=== PATIENT | female | born 1955 | race Caucasian/White ===

== ENCOUNTER 2018-09-06 17:02 | Inpatient (IN) | payer MEDICARE, MEDICAID ==
[2018-09-06] MEDS ORDERED: Piperacillin/Tazobactam 4.5 GM VIAL ONE (17:09)
[2018-09-06 17:31] LABS: Actual Bicarbonate (HCO3a) 29.1 mEq/L (22-28); Analyzer IN Cardio ER; Base Excess (BEa) 2.2 mEq/L (-2.0 to +3.0); CO2 Tension 56.1 mmHg (35.0-45.0); Calcium, Ionized 1.03 mmol/L (1.12-1.30); Hemoglobin (Hb) 11.8 g/dL (12.0-16.0); O2 Tension (PaO2) 163.7 mmHg (80.0-100.0); Potassium - ABG Lab 3.85 mmol/L (3.70-5.30); pH, Arterial 7.33 (7.35-7.45)
--- NOTE | 2018-09-06 17:32 | RAD ---
PORTABLE SUPINE CHEST: 09/06/18 HISTORY: Intubation. COMPARISON: None. Heart size is within normal limits for supine technique. Chronic lung changes are seen. Parenchymal c hanges of the left mid lung field are favored to be on the basis of scar rather than an acute infiltr ative process. Technique for the mediastinum is limited. There is an endotracheal tube which appears to be in satisf actory position. There also is what appears to be an NG tube. I cannot see the position of what appea rs to be a second tube distally. IMPRESSION: Endotracheal tube which appears to be in satisfactory position. There appears to be a secondary tube and NG tube which I cannot see as it passes distally. Parenchymal changes of the left mid and lower lung cantu which are favored to be chronic in nature. POS: HOLLIS
[2018-09-06 17:33] LABS: ALV-art Gradient 122.675 (0-20); Puncture Site RR
[2018-09-06 17:40] LABS: Bilirubin Negative (Negative); Blood, Urine Large (Negative); Clarity CLEAR (Clear); Glucose, Urine (Dipstick) Negative (Negative); Leukocyte Trace (Negative); Nitrite Negative (Negative); Protein, Urine (Dipstick) 30 mg/dL (Neg-Trace); Specific Gravity, Urine 1.015 (1.002-1.036)
[2018-09-06 17:43] LABS: INR-International Normal Ratio 1.1; PTT 27.8 SEC (22.9-36.1); Prothrombin Time 14.4 SEC (12.0-14.7)
[2018-09-06 17:43] LABS: Bacteria/HPF None Seen HPF (None Seen); Hyaline Casts/LPF 7-10 HYALINE CAST LPF (0-3 Hyaline); Pathc Cast-AUWi Flag 0.87 (0-2.49); RBC/HPF GREATER THAN 50-TNTC HPF (0-3); Renal Epithelial None Seen HPF (0-3); Squamous Epithelial 0-3 HPF (0-3); Transitional Epithelial NONE SEEN HPF (0-3)
[2018-09-06 17:58] LABS: ALT (SGPT) 61 U/L (8-55); AST (SGOT) 61 U/L (5-34); Albumin 3.2 g/dL (3.5-5.0); Alkaline Phosphatase 53 U/L (40-150); Anion Gap 13 mmol/L (10-20); BUN (Urea Nitrogen) 17 mg/dL (9.8-20.1); Bilirubin, Total 0.5 mg/dL (0.2-1.2); CK (CPK) 49 U/L (29-168); Calc. Creatinine Clearance 0 mL/min (70-130); Calcium 8.1 mg/dL (7.8-10.44); Carbon Dioxide 31 mmol/L (22-29); Chloride 99 mmol/L (98-107); Estimated GFR-MDRD 73; Globulin 2.8 g/dL (2.4-3.5); Glucose 116 mg/dL (70-105); Potassium 4.7 mmol/L (3.5-5.1); Sodium 138 mmol/L (136-145)
--- NOTE | 2018-09-06 18:01 | CT ---
CT OF BRAIN PERFORMED WITHOUT CONTRAST ENHANCEMENT: 09/06/18 HISTORY: Patient fell at home. Head injury. The ventricular and cisternal system is within normal limits. There is no signs of intracerebral hemo rrhage or extra-axial fluid collection. Mastoid air cells are clear. There is ethmoid air cell and ma xillary sinus mucosal changes. There is some engorgement in the region of the nasal turbinates. IMPRESSION: No acute intracranial abnormalities. POS: H
[2018-09-06 18:10] LABS: #Lymphocytes 0.9 thou/uL (1.20-3.40); #Monocytes 0.6 thou/uL (0.11-0.59); #Neutrophils 5.2 thou/uL (1.40-6.50); %Basophils 0.1 % (0.0-1.0); %Eosinophils 0.3 % (0.0-10.0); %Lymphocytes 12.8 % (21.0-51.0); %Monocytes 8.9 % (0.0-10.0); %Neutrophils 77.9 % (42.0-75.0); Mean Corpuscular HGB CONC 32.2 g/dL (32.0-36.0); Mean Corpuscular Hemoglobin 30.7 pg (27.0-31.0); Mean Corpuscular Volume 95.2 fL (78.0-98.0); Mean Platelet Volume 6.9 fL (7.4-10.4); Platelet Count 235 thou/uL (130-400); RBC Distribution Width 11.9 % (11.5-14.5); Red Blood Cell (RBC) Count 3.93 mill/uL (4.20-5.40); White Blood Cell (WBC) Count 6.6 thou/uL (4.8-10.8)
--- NOTE | 2018-09-06 18:23 | CT ---
CT ABDOMEN AND PELVIS WITH IV CONTRAST: 09/06/18 HISTORY: Altered mental status, fever, vaginal bleeding. FINDINGS: There are mild dependent changes in the lung bases. The liver, spleen, pancreas, adrenal glands and r ight kidney are normal. There is a cyst in the left kidney. The patient is post cholecystectomy. No free air, free fluid, or lymphadenopathy is seen in the abdomen or pelvis. There are vascular calc ifications without evidence of aneurysmal dilatation of the abdominal aorta. There are degenerative c hanges in the spine. A uterus is present. A normal appearing appendix is noted. There is sigmoid diverticulosis without di verticulitis. No abnormally loculated fluid collection is seen to suggest abscess formation. Nasogast roderick tube is present. There is a Estrada catheter in the nondistended urinary bladder. IMPRESSION: 1. No acute process. 2. Sigmoid diverticulosis. 3. Left renal cyst. POS: MZA
--- NOTE | 2018-09-06 18:29 | CT ---
CT PULMONARY ANGIOGRAM WITH IV CONTRAST AND 3D POSTPROCESSIN09/06/18 HISTORY: Altered mental status. Respiratory failure. FINDINGS: No filling defects are seen in the pulmonary artery vasculature to suggest pulmonary embolism. The th oracic aorta is well opacified without aneurysmal dissection. Vascular calcifications are present. No pleural or pericardial effusions are seen. There are patchy infiltrates in the left mid and right lo wer lung zones. There are dependent changes in the lung bases. Endotracheal and nasogastric tubes are present. IMPRESSION: No CT evidence of pulmonary embolism. POS: PRABHAA
[2018-09-06 18:30] LABS: CKMB 1.5 ng/mL (0-6.6)
[2018-09-06] MEDS ORDERED: fentaNYL Citrate/PF 2,000 MCG in Sodium Chloride 0.9% 60 ML IV SCH (18:31)
[2018-09-06] MEDS ORDERED: Aspirin 300 MG Suppository ONE (19:00)
[2018-09-06] MEDS ORDERED: Lorazepam 2 MG/ML VIAL ONE (19:06)
[2018-09-06] MEDS ORDERED: Norepinephrine 8 MG/0.9% NS 250 ML ONE (20:06)
--- NOTE | 2018-09-06 20:16 | RAD ---
PORTABLE CHEST ONE VIEW: 09/06/18 at 7:55 p.m. HISTORY: Respiratory failure. FINDINGS/IMPRESSION: Comparison is made with earlier exam of 5:09 p.m. There has been interval placement of a right internal jugular central line with tip in the projection of the SVC. No pneumothoraces are seen. The remainder of the exam is otherwise stable. POS: MZA
[2018-09-06] MEDS ORDERED: Propofol BOLUS 1,000 MG/100 ML VIAL IV PRN (20:24)
[2018-09-06] MEDS ORDERED: Lorazepam 2 MG/ML VIAL SLOW IVP PRN (20:24)
[2018-09-06] MEDS ORDERED: Fentanyl BOLUS 250 ML IVPB PRN (20:24)
[2018-09-06] MEDS ORDERED: Morphine 2 MG/ML SYRINGE SLOW IVP PRN (20:24)
[2018-09-06] MEDS ORDERED: Propofol 1,000 MG/100 ML VIAL IV PRN (20:24)
[2018-09-06] MEDS ORDERED: Ondansetron PF 4 MG/2 ML Vial IVP PRN ×2 (20:26→20:52)
[2018-09-06] MEDS ORDERED: Ondansetron ODT 4 MG TAB SL PRN (20:26)
--- NOTE | 2018-09-06 20:44 | PDOC.FPRHP ---
- History of Present Illness Chief Complaint: Respiratory distress, found down History of Present Illness: This is a 63 yo female with a PMH of COPD, vaginal cancer who presented intubated to the ED via EMS. EMS was notified by her son who found her down at her house. He states that she was foaming at the mouth and appeared to be struggling to breath. EMS intubated her and brought her in. In the ER, she was placed on the ventilator and received fentanyl and ativan due to her moving about more. Pt was unable to provide any information and family states she is private with her medical details. They did report that she uses 3L of O2 24/ at home. ED Course: Levophed gtt Ativan 2mg Fentanyl gtt aspirin 600mg Vanc 1g zosyn 4.5g NS 1.5 bolus duoneb x1 - Allergies/Adverse Reactions Allergies Allergy/AdvReac Type Severity Reaction Status Date / Time No Known Drug Allergies Allergy Unverified 09/06/18 18:31 - History PMHx: COPD, vaginal cancer PSHx: unable to asses FHx:noncontributory Social: Current smoker, previous alcohol and marijuana use - Review of Systems ROS unobtainable: due to endotracheal tube - Vital signs BP: 92/64 HR: 102 RR: 20 Ventilated Tmax: 100.4 Pox: 95% on Vent (50% fio2) Wt : 84.7 kg - Physical Exam Constitutional: well developed, other (Intubated in no acute distress) HEENT: normocephalic and atraumatic, PERRLA, MMM Neck: trachea midline, no JVD Chest: no-tender to palpation Heart: RRR, normal S1/S2, no murmurs/rubs/gallops, pulses present (distal pulses present) Lungs: other (crackles throughout lung cantu) Abdomen: soft, bowel sounds present Neurological: other (GSC:10 Eyes to verbal command, Verbal 1t, motor: obeys commands) -Neurological: Unable to fully exam neuro due to intubation and sedation. pupils are small but reactive, pt follows commands and there appears no deficit in her motor strength. Will reassess when possible. FMR H&P: Results - Labs Result Diagrams: 09/06/18 17:28 09/06/18 17:27 Lab results: WBC 6.6 thou/uL (4.8-10.8) 09/06/18 17:28 Hgb 12.0 g/dL (12.0-16.0) 09/06/18 17:28 Hct 37.4 % (36.0-47.0) 09/06/18 17:28 MCV 95.2 fL (78.0-98.0) 09/06/18 17:28 Plt Count 235 thou/uL (130-400) 09/06/18 17:28 Neutrophils % 77.9 % (42.0-75.0) H 09/06/18 17:28 ABG pH 7.33 (7.35-7.45) L 09/06/18 17:27 ABG pCO2 56.1 mmHg (35.0-45.0) H 09/06/18 17:27 ABG pO2 163.7 mmHg (80.0-100.0) H 09/06/18 17:27 Sodium 138 mmol/L (136-145) 09/06/18 17:27 Potassium 4.7 mmol/L (3.5-5.1) 09/06/18 17:27 Chloride 99 mmol/L (98-107) 09/06/18 17:27 Carbon Dioxide 31 mmol/L (22-29) H 09/06/18 17:27 BUN 17 mg/dL (9.8-20.1) 09/06/18 17:27 Creatinine 0.81 mg/dL (0.6-1.1) 09/06/18 17:27 Glucose 116 mg/dL (70-105) H 09/06/18 17:27 Lactic Acid 1.5 mmol/L (0.5-2.2) 09/06/18 17:27 Calcium 8.1 mg/dL (7.8-10.44) 09/06/18 17:27 Total Bilirubin 0.5 mg/dL (0.2-1.2) 09/06/18 17:27 AST 61 U/L (5-34) H 09/06/18 17:27 ALT 61 U/L (8-55) H 09/06/18 17:27 Alkaline Phosphatase 53 U/L (40-150) 09/06/18 17:27 Creatine Kinase 49 U/L (29-168) 09/06/18 17:27 CK-MB (CK-2) 1.5 ng/mL (0-6.6) 09/06/18 17:27 B-Natriuretic Peptide 221.7 pg/mL (0-100) H 09/06/18 17:28 Serum Total Protein 6.0 g/dL (6.0-8.3) 09/06/18 17:27 Albumin 3.2 g/dL (3.5-5.0) L 09/06/18 17:27 Urine Ketones Negative mg/dL (Negative) 09/06/18 17:14 Urine Blood Large (Negative) H 09/06/18 17:14 Urine Nitrite Negative (Negative) 09/06/18 17:14 Ur Leukocyte Esterase Trace (Negative) H 09/06/18 17:14 Urine RBC GREATER THAN 50-TNTC HPF (0-3) H 09/06/18 17:14 Urine WBC 4-6 HPF (0-3) H 09/06/18 17:14 Ur Squamous Epith Cells 0-3 HPF (0-3) 09/06/18 17:14 Urine Bacteria None Seen HPF (None Seen) 09/06/18 17:14 - Radiology Interpretation Chest x-ray Status: report reviewed by me (Trachial tube and central line in place) CT scan - chest Status: report reviewed by me (CTA no evidence for PE, Patchy infiltrates in left mid and right lower lung zones) CT scan - abdomen Status: report reviewed by me (and pelvis: no acute findings, sigmoid diverticulosis) FMR H&P: A/P - Problem List (1) Acute respiratory failure with hypoxia Current Visit: Yes Status: Acute Code(s): J96.01 - ACUTE RESPIRATORY FAILURE WITH HYPOXIA (2) COPD (chronic obstructive pulmonary disease) Current Visit: Yes Status: Acute (3) UTI (urinary tract infection) Current Visit: Yes Status: Acute (4) Vaginal cancer Current Visit: Yes Status: Acute - Plan This is a 63 yo female with a pmh of COPD, vaginal cancer in remission Acute hypoxic respiratory failure likely 2/2 COPD exacerbation vs. PNA vs. substance use -Admit to ICU -On ventilator for respiratory support. Plan on weaning O2 overnight and plan to attempt extubation in the morning. Repeat ABG and CXR scheduled for the AM -Continue broad spectrum abx for possible PNA vs. COPD exacerbation. Vanc and zosyn 09/06, vanc trough 09/08 at 0500. -Starting IV steroids, convert to PO once pt can tolerate oral -Duonebs for respiratory support -Obtain more information from pt once she can communicate -Pending UDS -Pending FLU CHF -BNP is 221 HTN UA -broad spectum abx, likely not the source of her respiratory failure. Previous drug use, pending UDS Code: Full Prophylaxis: lovenox, Pepcid Family: son at bedside and assessment and plan discussed with him Disposition: DC in 3-4 days FMR H&P: Upper Level - Pertinent history 60F presents to ER after being found down by her son at approximately 1600, gasping for breath. She was last seen normal at approximately 1400 same day. She was intubated by EMS and brought to the ER where she is treated as possible sepsis with antibiotic. Prior to this, her son was ill with URI like symptom and she soon developed similar symptom for past several days. She has history of COPD and requires 3 L O2 at baseline. Per family, she has been taking medication appropriately, spiriva for COPD. They endorse not knowing her full medical history. - Pertinent findings Exam limited by patient being intubated and sedated. Gen: Intubated and sedated HEENT: Normocephalic, pupil reactive to light, intubated Resp: Currently on 40% O2, Tv 450, Peep 10, PS 5, 14 BPM. Clear auscultation CV: RRR with no obvious m/g/r/ GI: Normoactive, soft, no rebound or guarding Ext: Trace edema MSK: no obvious deformeties Neuro: On 14 of fentanyl. Can be aroused by voice. Follows command, open eyes to voice. No focal weakness noted. - Plan Date/Time: 09/06/182042 I, [Rufus Melton], have evaluated this patient and agree with findings/plan as outlined by inclusion intern resident. Pertinent changes/additions are listed here. 1. Acute Respiratory failure, hypoxic and hypercapnic - Consider multiple etiology including neuro, iatrogenic medication, cardiogenic , resp, infectious and urology. - UA positive. Will culture. Cover with broad abx at this time. - Family endorse patient has used marijuana in past. Will run UDS - Medication includes lasix. Consider CHF but BNP normal. Consider ACS as indeterminate trop. WIll repeat. - Possible medication. Patient and family can't provided complete history. Obtain UDS - History of recent illness. Obtain flu screen. - CT scan head normal, makes neuro less likely. - Resp, possible COPD exacerbation. Will cover broadly at this time and then narrow as patient improve. - Intubate, admit to ICU, consult pulm. - Currently hypotensive, is on pressor, may be result of sedation. Vitals and WBC does not support sepsis at this point, but will still treat with abx. Consider ceftriaxone. 2. CHF - Possible base on family history. Consider Echo when patient improves. - Continue lasix 3. HTN - Chronic issue - Continue valsartan when patient extubated. Cover with IV med as needed 4. COPD - Continue with duoneb - Supplement with O2 via vent 5. Chronic pain - Takes naproxen for chronic pain. At this time, hold med 6. Anxiety - Hold xanax
[2018-09-06] MEDS ORDERED: CCU Electrolyte Replacement 1 EACH FS ONE (20:52)
[2018-09-06] MEDS ORDERED: Acetaminophen 325 MG TAB PO PRN (20:52)
[2018-09-06] MEDS ORDERED: Ventilator Sedation Protocol 1 EACH FS ONE (20:52)
[2018-09-06] MEDS ORDERED: Ondansetron ODT 4 MG TAB PO PRN (20:52)
[2018-09-06] MEDS ORDERED: Acetaminophen 650 MG Suppository PR PRN (20:52)
[2018-09-06] MEDS ORDERED: Potassium Chloride 20 MEQ TAB PO PRN (20:59)
[2018-09-06] MEDS ORDERED: Potassium Phosphate 15 MMOL in Sodium Chloride 0.9% 250 ML 250 ML IV PRN (20:59)
[2018-09-06] MEDS ORDERED: Potassium Chloride 40 MEQ in Sodium Chloride 0.9% 250 ML 250 ML IVPB PRN (20:59)
[2018-09-06] MEDS ORDERED: Potassium Phosphate 12 MMOL in Sodium Chloride 0.9% 250 ML 250 ML IV PRN (20:59)
[2018-09-06] MEDS ORDERED: CCU ELECTROLYTE REPLACEMENT PROTOCOL FS PRN (20:59)
[2018-09-06] MEDS ORDERED: Potassium Chloride 40 MEQ in Premix Bag 1 BAG IVPB PRN (20:59)
[2018-09-06] MEDS ORDERED: Magnesium Oxide 400 MG TAB PO PRN ×2 (20:59)
[2018-09-06] MEDS ORDERED: Magnesium 2 GM/NS 0.9% 100 ML 2 GM in Premix Bag 1 BAG IVPB PRN (20:59)
[2018-09-06] MEDS ORDERED: Potassium Phosphate 9 MMOL in Sodium Chloride 0.9% 100 ML IVPB PRN (20:59)
[2018-09-06 21:14] LABS: Troponin I 0.078 ng/mL (< 0.028)
[2018-09-06] MEDS ORDERED: Norepinephrine 8 MG/250 ML BAG IVPB PRN ×2 (21:59→22:01)
--- NOTE | 2018-09-06 22:40 | PDOC.EVN ---
Event Note - Event Note Event Note: Date/Time: 09/06/182 I personally evaluated the patient and discussed the management with Dr. Berumen /Linh I agree with the History, Examination, Assessment and Plan documented above with any addition or exceptions noted below- 63 yo female with h/o COPD on chronic O2 at home, vaginal cancer presents via EMS after being found unresp[ onsive at home by son. Per ERMD, patient had been c/o SOB and malaise earlier in the day. Family went to run errands and when they returned they found her unresponsive and having foamy sputum at the mouth. EMS was called and patient was intubated uin the field. Currently patient is intubated but responding to verbal commands and able to answer yes/no questions. She does endorse feeling poorly with cough, fever for the last 3-4 days. PMH/PSH/All unable to be obtained at this time. P94 BP 105/77 RR20 98% on FiO2=40% Exam repeated by me and agree with resident's findings. Labs: WBC=6.6, H/H=12/37.9, Coa=763, Na= 138, K=4.7, Cl=99, CO2=31, BUN/Cr= 17/0.81, Iewn=089, AST/ALT=61/61, CYR=466, trop I=0.037 -> 0.078 CXR-ETT in position; infiltrate in LLL, CT chest- no PE A/ P: 1) Acute respiratory failure - Admit to ICU; continue vent support; ABG and CXR in AM. 2) Sepsis secondary to possible pneumonia- continue IVF. Monitor urine output. Continue abx. Blood, urine cultures pending. Will check flu swab. 3) H/o COPD- start duonebs, steroids. Wean vent as tolerated. Pulmonary consult in AM.
[2018-09-06] MEDS: Famotidine/PF 20 mg/2ml Vial SLOW IVP SCH (22:43)
[2018-09-06 22:46] LABS: Amphetamine Not Detected (NotDetected); Barbiturates Screen Not Detected (NotDetected); Benzodiazepine Screen Detected (NotDetected); Cocaine Metabolite Screen Not Detected (NotDetected); Medtox Control Line Valid? VALID (VALID); Medtox Reader # READER 1; Methadone Not Detected (NotDetected); Methamphetamine Not Detected (NotDetected); Opiate Screen Not Detected (NotDetected); Oxycodone Screen Not Detected (NotDetected); Phencyclidine (PCP) Not Detected (NotDetected); THC/Cannabinoid Screen Not Detected (NotDetected); Tricyclic Screen Not Detected (NotDetected)
[2018-09-06] MEDS: Famotidine 20 MG TAB PO SCH (23:03)
[2018-09-06] MEDS: Lactated Ringer's 1,000 ML IV SCH (23:04)
[2018-09-07 00:11] LABS: Troponin I 0.097 ng/mL (< 0.028)
[2018-09-07] MEDS: Piperacillin/Tazobactam 3.375 GM in Sodium Chloride 0.9% 100 ML IVPB SCH ×5 (01:14→23:04)
[2018-09-07] MEDS ORDERED: diphenhydrAMINE 50 MG/ML VIAL IVP PRN (04:59)
[2018-09-07] MEDS: Lactated Ringer's 1,000 ML IV SCH ×4 (05:13→21:15)
[2018-09-07 05:16] LABS: #Lymphocytes 0.9 thou/uL (1.20-3.40); #Monocytes 0.8 thou/uL (0.11-0.59); #Neutrophils 5.8 thou/uL (1.40-6.50); %Eosinophils 0.1 % (0.0-10.0); %Lymphocytes 11.8 % (21.0-51.0); %Monocytes 10.8 % (0.0-10.0); %Neutrophils 77.3 % (42.0-75.0); Hemoglobin 11.2 g/dL (12.0-16.0); Mean Corpuscular HGB CONC 32.4 g/dL (32.0-36.0); Mean Corpuscular Hemoglobin 30.3 pg (27.0-31.0); Mean Corpuscular Volume 93.7 fL (78.0-98.0); Mean Platelet Volume 6.9 fL (7.4-10.4); Platelet Count 267 thou/uL (130-400); White Blood Cell (WBC) Count 7.5 thou/uL (4.8-10.8)
[2018-09-07] MEDS: Vancomycin HCl 1.75 GM in Sodium Chloride 0.9% 500 ML IVPB SCH ×2 (05:21→17:01)
--- NOTE | 2018-09-07 07:12 | PDOC.FM ---
- Subjective Subjective: 63 yo female seen at bedside this AM. Patient is intubated. She is arousable and follows commands. She repeatedly indicates she would like the ET tube out. Per nursing staff, no acute events overnight, however, she has had a decrease in her urine output. No other history is able to be obtained. - Objective Vital Signs & Weight: Vital Signs (12 hours) Temp Pulse Resp Pulse Ox 09/07/18 06:00 20 09/07/18 04:00 98.7 F 20 09/07/18 02:04 98 09/07/18 02:00 20 09/07/18 01:00 99.3 F 09/07/18 00:00 20 09/06/18 22:43 91 09/06/18 22:00 20 09/06/18 21:00 99.0 F 09/06/18 19:15 97 Weight Weight 84.7 kg Most Recent Monitor Data Heart Rate from ECG 89 NIBP 110/78 NIBP BP-Mean 88 Respiration from ECG 20 SpO2 97 I&O: 09/06/18 09/07/18 09/08/18 06:59 06:59 06:59 Intake Total 1930.8 Output Total 1035 Balance 895.8 Result Diagrams: 09/07/18 09:14 09/07/18 09:14 Phys Exam - Physical Examination Constitutional: NAD ET tube and Right IJ in place Respiratory: no wheezing Diminished breath sounds throughout. Cardiovascular: RRR, no significant murmur Gastrointestinal: soft, non-tender, no distention, positive bowel sounds Musculoskeletal: no edema, pulses present Neurological: non-focal, moves all 4 limbs Deviation from normal: intubated Skin: no rash, cap refill <2 seconds Dx/Plan (1) Acute respiratory failure with hypoxia Code(s): J96.01 - ACUTE RESPIRATORY FAILURE WITH HYPOXIA Status: Acute (2) COPD (chronic obstructive pulmonary disease) Status: Chronic (3) HTN (hypertension) Code(s): I10 - ESSENTIAL (PRIMARY) HYPERTENSION Status: Chronic (4) UTI (urinary tract infection) Status: Acute - Plan Plan: Acute hypoxic respiratory failure likely 2/2 COPD exacerbation vs. PNA vs. substance use - Admit to ICU - On ventilator for respiratory support. Plan to attempt extubation per Pulmonology. - Continue broad spectrum abx for possible PNA vs. COPD exacerbation. Vanc and zosyn 09/06, vanc trough 09/08 at 0500. - Starting IV steroids, convert to PO once pt can tolerate oral - Duonebs for respiratory support - Obtain more information from pt once she can communicate - UDS positive for benzodiazepines - Influenza pending - Blood culture pending CHF - BNP is 221 - Strict I&Os - Monitor for fluid overload - Restart home medications when appropriate HTN - Restart home medications when appropriate UTI - Continue antibiotic coverage - Urine culture pending - decreased urine output to 25 ml/hr overnight. Will give 500 ml bolus to see if urine output will increase. Disposition: Stable, will plan for extubation today. Addendum - Attending - Attending Attestation Date/Time: 09/07/18 [id number] I personally evaluated the patient and discussed the management with Dr. Mauro I agree with the History, Examination, Assessment and Plan documented above with any addition or exceptions noted below- Patent intubated; responding/ following commands. Tm 100.7 VSS A/P: 1) Respiratory failure- improved. Pulmonary consulted. Possible extubation today. 2) COPD- continue O2, steroids, duonebs, abx. Blood, urine cultures pending. Flu swab pending.
[2018-09-07 07:18] LABS: Troponin I 0.093 ng/mL (< 0.028)
[2018-09-07] MEDS ORDERED: Sodium Chloride 0.9% 500 ML IV SCH (07:30)
[2018-09-07 07:49] LABS: Actual Bicarbonate (HCO3a) 29.2 mEq/L (22-28); Base Excess (BEa) 3.3 mEq/L (-2.0 to +3.0); CO2 Tension 50.5 mmHg (35.0-45.0); Calcium, Ionized 1.07 mmol/L (1.12-1.30); Carboxyhemoglobin (COHb) 1.1 gm% (0.0-3.0); Hemoglobin (Hb) 11.4 g/dL (12.0-16.0); O2 Tension (PaO2) 83.5 mmHg (> 80.0); pH, Arterial 7.38 (7.35-7.45)
[2018-09-07 08:15] LABS: ALV-art Gradient 138.575 (0-20); Puncture Site RRA
[2018-09-07] MEDS: Famotidine/PF 20 mg/2ml Vial SLOW IVP SCH ×2 (08:57→21:15)
[2018-09-07] MEDS: Enoxaparin Sodium 40 MG/0.4 ML SYRINGE SC SCH (08:57)
[2018-09-07] MEDS ORDERED: DC Sedation Protocol FS ONE (09:19)
[2018-09-07 09:22] LABS: #Lymphocytes 1.3 thou/uL (1.20-3.40); #Neutrophils 7.8 thou/uL (1.40-6.50); %Basophils 0.1 % (0.0-1.0); %Eosinophils 0.1 % (0.0-10.0); %Lymphocytes 12.6 % (21.0-51.0); %Monocytes 10.2 % (0.0-10.0); %Neutrophils 76.9 % (42.0-75.0); Hemoglobin 11.3 g/dL (12.0-16.0); Mean Corpuscular HGB CONC 32.2 g/dL (32.0-36.0); Mean Corpuscular Hemoglobin 30.5 pg (27.0-31.0); Mean Corpuscular Volume 94.5 fL (78.0-98.0); Mean Platelet Volume 6.6 fL (7.4-10.4); Platelet Count 255 thou/uL (130-400); RBC Distribution Width 12.1 % (11.5-14.5); White Blood Cell (WBC) Count 10.1 thou/uL (4.8-10.8)
[2018-09-07 09:42] LABS: ALT (SGPT) 90 U/L (8-55); AST (SGOT) 71 U/L (5-34); Albumin 3.1 g/dL (3.4-4.8); Alkaline Phosphatase 55 U/L (40-150); Anion Gap 10 mmol/L (10-20); BUN (Urea Nitrogen) 15 mg/dL (9.8-20.1); Bilirubin, Total 0.3 mg/dL (0.2-1.2); Calc. Creatinine Clearance 104 mL/min (70-130); Calcium 7.8 mg/dL (7.8-10.44); Carbon Dioxide 28 mmol/L (23-31); Chloride 106 mmol/L (98-107); Estimated GFR-MDRD 77; Globulin 2.6 g/dL (2.4-3.5); Glucose 114 mg/dL (80-115); Potassium 3.9 mmol/L (3.5-5.1); Protein, Total 5.7 g/dL (6.0-8.3); Sodium 140 mmol/L (136-145)
--- NOTE | 2018-09-07 09:52 | RAD ---
PORTABLE SEMIUPRIGHT FRONTAL CHEST RADIOGRAPH: Date: 09/07/18 COMPARISON: 09/06/18. HISTORY: Intubation, respiratory failure. FINDINGS: Stable endotracheal tube and nasogastric tube. Stable right-sided vascular catheter. Increased linear interstitial density and pulmonary hyperinflation suggests air trapping. There is hazy increased den sity in the medial left lung base, slightly worsened. There is subtle horizontal increased density in the mid left lung zone. IMPRESSION: Mild asymmetric increased density in the left lung base/mid left lung zone. This could represent volu me loss or infiltrate within the left lower lobe. POS: HOLLIS
--- NOTE | 2018-09-07 10:02 | CON ---
DATE OF CONSULTATION: HISTORY OF PRESENT ILLNESS: Ana Evans is a 63-year-old female with known history of COPD, presented with unresponsiveness at home, frothy secretions. No history is obtainable at that time she arrived. She is intubated. Now, she is on the vent this morning. She is awake, alert, and responsive. She is on low-dose Diprivan. At this stage, we are unable to get any additional information. As soon as the son arrives, he is trying to get some additional information. MEDICATIONS: List of home medicine includes: 1. Diovan 80. 2. Potassium. 3. Naprosyn. 4. Singulair 10. 5. Lasix 20. 6. Spiriva. 7. Albuterol inhaler. 8. Xanax p.r.n. Apparently, she was taking 2 mg three times a day. REVIEW OF SYSTEMS: Unremarkable. PHYSICAL EXAMINATION: VITAL SIGNS: Blood pressure 130/80, and respirations 18. GENERAL: She is awake, alert, and responsive. EXTREMITIES: Moves all 4 extremities. CHEST: Decreased breath sounds. No wheezing. CARDIAC: Normal S1 and S2. No gallops. ABDOMEN: No masses. LABORATORY DATA: White count 10,000, hemoglobin and hematocrit of 11 and 34, and platelet count normal. Her tox screen is positive for benzos. Chemistry profile otherwise was unremarkable. Had a blood gas that shows pO2 of 83, . Chest x-ray shows a questionable left-sided infiltrate. IMPRESSION: 1. Acute on chronic respiratory failure. 2. Chronic obstructive pulmonary disease. 3. Obesity. 4. Hypertension. PLAN: Continue broad-spectrum antibiotics, steroids, neb treatment, wean when stable. This is a 45 minutes critical time. Job ID: [id number]
[2018-09-07] MEDS: Famotidine 20 MG TAB PO SCH ×2 (10:56→21:15)
--- NOTE | 2018-09-07 11:41 | CON ---
DATE OF CONSULTATION: The patient's son came from [place] ,he not aware of medical issuse, She has additionally got a diagnosis of vaginal cancer, seeing a physician for that. She is very agitated. One of the endotracheal tubes to be removed. This was removed promptly. She has done well on 2 L sats 90%. Additionally, she tells me that she has sleep apnea and COPD and has Bilevel CPAP machine at home. Post extubation revealed initiate Bilevel treatment. She can probably get her own BiPAP machine from home, the son can do that. In the interim, we will continue aggressive neb treatments, PT, and supportive care. Job ID: [id number] MTDD
[2018-09-07 14:25] LABS: HBCM Index 0.07 S/CO (0-0.79); HBSAB Concentration 1.01 mIU/mL; HBSAg Index 0.24 S/CO (0-0.99); Hep A IgM AB Non-Reactive (NonReactive); Hep A IgM S/CO 0.17 S/CO (0-0.79); Hep B Core Total Ab Non-Reactive (NonReactive); Hep B Core Total Index 0.08 S/CO (0-0.79); Hep B Surf AB Non-Reactive (NonReactive); Hep B Surf Ag Non-Reactive S/CO (NonReactive); Hep C IgG Ab Non-Reactive (NonReactive); Hep C Index 0.06 S/CO (0-0.79); Hepatitis B Core IgM Abs Non-Reactive (NonReactive)
[2018-09-07] MEDS: Oseltamivir 75 MG CAP PO SCH (21:16)
[2018-09-08] MEDS: Lactated Ringer's 1,000 ML IV SCH (05:01)
[2018-09-08] MEDS: Piperacillin/Tazobactam 3.375 GM in Sodium Chloride 0.9% 100 ML IVPB SCH ×3 (05:02→18:35)
[2018-09-08] MEDS: Vancomycin HCl 1.75 GM in Sodium Chloride 0.9% 500 ML IVPB SCH ×4 (05:07→22:34)
[2018-09-08 05:19] LABS: #Lymphocytes 0.6 thou/uL (1.20-3.40); #Monocytes 0.6 thou/uL (0.11-0.59); #Neutrophils 7.9 thou/uL (1.40-6.50); %Basophils 0.2 % (0.0-1.0); %Eosinophils 0.2 % (0.0-10.0); %Lymphocytes 6.3 % (21.0-51.0); %Monocytes 6.2 % (0.0-10.0); %Neutrophils 87.1 % (42.0-75.0); Hemoglobin 10.7 g/dL (12.0-16.0); Mean Corpuscular HGB CONC 31.9 g/dL (32.0-36.0); Mean Corpuscular Hemoglobin 30.4 pg (27.0-31.0); Mean Corpuscular Volume 95.3 fL (78.0-98.0); Mean Platelet Volume 6.9 fL (7.4-10.4); Platelet Count 237 thou/uL (130-400); RBC Distribution Width 11.9 % (11.5-14.5); Red Blood Cell (RBC) Count 3.53 mill/uL (4.20-5.40); White Blood Cell (WBC) Count 9.1 thou/uL (4.8-10.8)
[2018-09-08 05:39] LABS: ALT (SGPT) 71 U/L (8-55); AST (SGOT) 44 U/L (5-34); Alkaline Phosphatase 45 U/L (40-150); Anion Gap 11 mmol/L (10-20); BUN (Urea Nitrogen) 12 mg/dL (9.8-20.1); Bilirubin, Total 0.2 mg/dL (0.2-1.2); Calc. Creatinine Clearance 101 mL/min (70-130); Carbon Dioxide 33 mmol/L (23-31); Chloride 101 mmol/L (98-107); Estimated GFR-MDRD 75; Globulin 2.7 g/dL (2.4-3.5); Glucose 128 mg/dL (80-115); Protein, Total 5.7 g/dL (6.0-8.3); Sodium 141 mmol/L (136-145); Vancomycin, Trough 23.5 ug/mL
--- NOTE | 2018-09-08 06:27 | PDOC.FM ---
- Subjective Subjective: 63 yo female seen at bedside this AM. Patient's only complaint today is that she is thirsty and hungry. Patient is more conversational today as well. She states that she has felt poorly over the last 2-3 days and then is unclear of what events lead her to being admitted to the hospital. Patient states that she has chronic COPD and wears O2 at home. She states she still smokes cigarettes occasionally, but not on a daily basis. Patient denies chest pain, abdominal pain, SOB, n/v/d, fevers, or chills. No other complaints today. - Objective Vital Signs & Weight: Vital Signs (12 hours) Temp Pulse Resp Pulse Ox 09/08/18 02:08 95 23 H 99 09/08/18 00:00 99.3 F 09/07/18 22:41 107 H 24 H 96 09/07/18 22:39 95 22 H 96 09/07/18 20:00 99.7 F H 98 09/07/18 18:39 96 22 H 97 Weight Weight 84.7 kg Most Recent Monitor Data Heart Rate from ECG 92 NIBP 100/70 NIBP BP-Mean 80 Respiration from ECG 21 SpO2 100 I&O: 09/06/18 09/07/18 09/08/18 06:59 06:59 06:59 Intake Total 1930.8 2675 Output Total 1035 2565 Balance 895.8 110 Result Diagrams: 09/08/18 03:55 09/08/18 03:55 Phys Exam - Physical Examination Constitutional: NAD Dry mucous membranes Neck: supple, full ROM Respiratory: wheezing present Diminished breath sounds throughout. Expiratory wheezes present. Cardiovascular: RRR, no significant murmur Gastrointestinal: soft, non-tender, no distention, positive bowel sounds Musculoskeletal: no edema, pulses present Neurological: non-focal, moves all 4 limbs Psychiatric: A&O x 3 Skin: no rash, cap refill <2 seconds Dx/Plan (1) Acute respiratory failure with hypoxia Code(s): J96.01 - ACUTE RESPIRATORY FAILURE WITH HYPOXIA Status: Acute (2) Influenza A Code(s): J10.1 - FLU DUE TO OTH IDENT INFLUENZA VIRUS W OTH RESP MANIFEST Status: Acute (3) COPD (chronic obstructive pulmonary disease) Status: Chronic (4) HTN (hypertension) Code(s): I10 - ESSENTIAL (PRIMARY) HYPERTENSION Status: Chronic (5) UTI (urinary tract infection) Status: Acute (6) Blood bacterial culture positive Code(s): R78.81 - BACTEREMIA Status: Acute - Plan Plan: Acute hypoxic respiratory failure likely 2/2 COPD exacerbation vs. Influenza A - Admit to ICU - Extubation 09/07 - Continue broad spectrum. Vanc and zosyn 09/06, vanc trough 09/08 at 0500. - IV steroids BID per Pulmonology, appreciate recs - Duonebs for respiratory support - Patient remains very weak and tired. Easily arousable. - UDS positive for benzodiazepines - Influenza A positive - Droplet precautions initiated - Blood culture shows Coagulase Negative Staph in 09/17. Likely contaminant - Patient transitioned to home O2 at 3L currently and maintaining oxygenation CHF - BNP is 221 - Strict I&Os - Monitor for fluid overload - Restart home medications when appropriate HTN - Restart home medications when appropriate UTI - Continue antibiotic coverage - Urine culture pending - Urine output 2565 last 24 hours Disposition: Stable, will continue current plan of care.
[2018-09-08 07:54] VITALS: BMI 34.5
[2018-09-08] MEDS: Oseltamivir 75 MG CAP PO SCH ×2 (08:56→20:09)
[2018-09-08] MEDS: Enoxaparin Sodium 40 MG/0.4 ML SYRINGE SC SCH (08:56)
[2018-09-08] MEDS: Famotidine 20 MG TAB PO SCH ×2 (08:56→20:09)
[2018-09-08] MEDS: Famotidine/PF 20 mg/2ml Vial SLOW IVP SCH ×2 (09:01→19:44)
--- NOTE | 2018-09-08 11:21 | PRG ---
DATE OF SERVICE: 09/08/2018 SUBJECTIVE: Ms. Evans is a 63-year-old white female patient, admitted with respiratory arrest secondary to advanced COPD. She was extubated yesterday and this morning, she is awake and alert. She normally uses BiPAP at home during the night and this has been reinstituted. She is on antibiotics and steroids. We will transition her to p.o. prednisone to complete a 5-day course of 40 mg daily. She will likely be ready for transfer to the regular floor in a day or 2 and perhaps home afterwards. Job ID: [id number]
--- NOTE | 2018-09-08 12:54 | PRG ---
DATE OF SERVICE: 09/08/2018 SERVICE: Pulmonary Medicine. INTERVAL HISTORY: The patient is doing fine from respiratory standpoint. Breathing comfortably. Denies any current chest pain, fevers, chills, nausea, or vomiting. When she work with physical therapy, she had very poor ability to get out of bed into a chair. She desaturated in the mid 80s. She took quite some time to recover. OBJECTIVE: VITAL SIGNS: Afebrile currently. Pulse 91, blood pressure 110/62, respirations 22, saturation 89% on 3 L nasal cannula. GENERAL: The patient is awake, alert, in no apparent distress. LUNGS: Very poor air entry and prolonged expiratory phase. There is a polyphonic wheezing present. No crackles are appreciated. HEART: Normal rate, regular. ABDOMEN: Soft, nontender, and nondistended. Bowel sounds are positive. MUSCULOSKELETAL: No cyanosis or clubbing. No pitting in the bilateral lower extremities. NEUROLOGIC: Grossly nonfocal. LABORATORY DATA: WBC 9.1, hemoglobin 10.7, platelets 237,000. Basic metabolic profile is unremarkable. Liver function studies are also improving. BNP was originally 221. ASSESSMENT: 1. Acute on chronic hypoxic and hypercapnic respiratory failure. 2. Chronic obstructive pulmonary disease with acute exacerbation. 3. Influenza A. DISCUSSION AND PLAN: The patient will continue using her home ventilator at night. From my perspective, she is stable for transition out of the ICU to the medical unit. Pulmonary/Critical Care will continue to follow along while the patient remains in the hospital. At this point, she is not ready for transition home. IV fluids will be interrupted if she is tolerating some p.o. Job ID: [id number]
--- NOTE | 2018-09-08 14:24 | PQF ---
CLINICAL DOCUMENTATION IMPROVEMENT CLARIFICATION FORM: ICD-10 Updated PLEASE DO AN ADDENDUM TO THE PROGRESS NOTE WITH ANY DOCUMENTATION UPDATES OR ADDITIONS AND CARRY THROUGH TO DC SUMMARY. THANK YOU. DATE: 09/08/18 ATTN: DR. LEVY Please exercise your independent, professional judgment in responding to the clarification form. Clinical indicators are provided on the bottom of this form for your review Please check appropriate box(s): HEART FAILURE: A. TYPE: [ ] Systolic / HFrEF [ ] Diastolic / HFpEF [ ] Combined Systolic / Diastolic B. ACUITY [ ] Acute [ ] Acute on Chronic [ ] Chronic [ ] Other diagnosis [ ] Unable to determine In addition, please specify: Present on Admission (POA): [ ] Yes [ ] No [ ] Unable to determine For continuity of documentation, please document condition throughout progress notes and discharge summary. Thank You. CLINICAL INDICATORS - SIGNS / SYMPTOMS / LABS PROGRESS NOTE 09/07: "CHF" BNP 221.7 RISKS: HYPERTENSION ACUTE RESPIRATORY FAILURE TREATMENT: INTUBATION MECHANICAL VENTILATION CRITICAL CARE MONITORING SERIAL LABS (This form is maintained as a part of the permanent medical record) 2014 [employer]. All Rights Reserved JASON [email or web address] Office: [phone] [facility]
--- NOTE | 2018-09-08 14:33 | PQF ---
CLINICAL DOCUMENTATION IMPROVEMENT CLARIFICATION FORM: ICD-10 Updated PLEASE DO AN ADDENDUM TO THE PROGRESS NOTE WITH ANY DOCUMENTATION UPDATES OR ADDITIONS AND CARRY THROUGH TO DC SUMMARY. THANK YOU. DATE: 09/08/18 ATTN: DR. LEVY Please exercise your independent, professional judgment in responding to the clarification form. Clinical indicators are provided on the bottom of this form for your review Please check appropriate box(s): [ ] Acute Respiratory Failure: [ ] Chronic Respiratory Failure only [ ] Acute on Chronic Respiratory Failure [ ] Other diagnosis [ ] Unable to determine In addition, please specify: Present on Admission (POA): [ ] Yes [ ] No [ ] Unable to determine For continuity of documentation, please document condition throughout progress notes and discharge summary. Thank You. CLINICAL INDICATORS - SIGNS / SYMPTOMS / LABS H&P: "THEY DID REPORT THAT SHE USES 3L OF O2 08/04 AT HOME." PROGRESS NOTE 09/08: "PATIENT STATES THAT SHE HAS CHRONIC COPD AND WEARS O2 AT HOME" RISKS: ACUTE RESPIRATORY FAILURE H/O COPD PNEUMONIA TREATMENT: INTUBATION MECHANICAL VENTILATION CRITICAL CARE MONITORING DUONEBS (ER-PRESENT) IV SOLUMEDROL (09/07-PRESENT) (This form is maintained as a part of the permanent medical record) 2014 [employer]. All Rights Reserved JASON [email or web address] Office: [phone] [facility]
[2018-09-08] MEDS ORDERED: PROVENTIL INHALER 6.7 G (200 INHALATIONS) INH PRN (18:43)
[2018-09-08] MEDS: ALPRAZolam 1 MG TAB PO SCH (20:07)
[2018-09-08] MEDS: Montelukast Sodium 10 mg Tablet PO SCH (20:09)
[2018-09-08] MEDS: Naproxen 500 MG TAB PO SCH (20:09)
[2018-09-08 20:20] LABS: Vancomycin, Trough 21.5 ug/mL
[2018-09-09] MEDS: Piperacillin/Tazobactam 3.375 GM in Sodium Chloride 0.9% 100 ML IVPB SCH ×4 (00:33→17:12)
--- NOTE | 2018-09-09 06:27 | PDOC.FM ---
- Subjective Subjective: 63 yo female seen at bedside this AM. Patient states she is much improved. She would like to have garcia discontinued this AM. She also states that her son was not able to bring her medications up to the hospital, but would like to have her home inhalers restarted. Patient denied overt SOB, chest pain, n/v/d, fevers , or chills. She states that she is still weak overall, but improved. No other complaints. - Objective Vital Signs & Weight: Vital Signs (12 hours) Temp Pulse Resp BP Pulse Ox 09/09/18 06:14 91 16 100 09/09/18 04:00 98.2 F 92 16 130/76 92 L 09/09/18 02:26 100 20 92 L 09/08/18 23:38 97.8 F 93 16 122/75 90 L 09/08/18 22:38 93 16 94 L 09/08/18 20:00 98.4 F 93 20 118/77 94 L 09/08/18 18:27 96 16 97 Weight Weight 88.904 kg Most Recent Monitor Data Heart Rate from ECG 92 NIBP 113/63 NIBP BP-Mean 79 Respiration from ECG 14 SpO2 95 I&O: 09/07/18 09/08/18 09/09/18 06:59 06:59 06:59 Intake Total 1930.8 4991 740 Output Total 1035 2835 2300 Balance 895.8 2156 -1560 Result Diagrams: 09/09/18 06:14 09/08/18 03:55 Phys Exam - Physical Examination Constitutional: NAD HEENT: moist MMs Respiratory: wheezing present Expiratory wheezing with diminished breath sounds. Cardiovascular: RRR, no significant murmur Gastrointestinal: soft, non-tender, no distention, positive bowel sounds Musculoskeletal: no edema, pulses present Neurological: non-focal, moves all 4 limbs Psychiatric: normal affect, A&O x 3 Skin: no rash, cap refill <2 seconds Dx/Plan (1) Acute respiratory failure with hypoxia Code(s): J96.01 - ACUTE RESPIRATORY FAILURE WITH HYPOXIA Status: Acute (2) Influenza A Code(s): J10.1 - FLU DUE TO OTH IDENT INFLUENZA VIRUS W OTH RESP MANIFEST Status: Acute (3) COPD (chronic obstructive pulmonary disease) Status: Chronic (4) HTN (hypertension) Code(s): I10 - ESSENTIAL (PRIMARY) HYPERTENSION Status: Chronic (5) UTI (urinary tract infection) Status: Acute (6) Blood bacterial culture positive Code(s): R78.81 - BACTEREMIA Status: Acute - Plan Plan: Acute hypoxic respiratory failure likely 2/2 COPD exacerbation vs. Influenza A - Initially admitted to ICU due to intubation and then Extubated 09/07 - Continue broad spectrum. Vanc and zosyn 09/06. - IV steroids BID per Pulmonology discontinued and started oral prednisone - Restarted home inhaler regimen - Duonebs for respiratory support - Patient states home xanax helps her symptoms a lot. - Influenza A positive - Droplet precautions initiated - Blood culture shows Coagulase Negative Staph in 09/17. Likely contaminant - Patient transitioned to home O2 at 3L currently and maintaining oxygenation CHF - BNP is 221 - Strict I&Os - Monitor for fluid overload - Restart home medications when appropriate HTN - Restart home medications when appropriate UTI - Continue antibiotic coverage - Urine culture negative - Urine output 2565 last 24 hours Disposition: Stable, will continue current plan of care.
[2018-09-09 07:13] LABS: #Lymphocytes 0.8 thou/uL (1.20-3.40); #Monocytes 0.6 thou/uL (0.11-0.59); #Neutrophils 5.1 thou/uL (1.40-6.50); %Eosinophils 0.3 % (0.0-10.0); %Lymphocytes 11.8 % (21.0-51.0); %Monocytes 9.5 % (0.0-10.0); %Neutrophils 78.4 % (42.0-75.0); Hemoglobin 10.8 g/dL (12.0-16.0); Mean Corpuscular HGB CONC 32.4 g/dL (32.0-36.0); Mean Corpuscular Hemoglobin 30.8 pg (27.0-31.0); Mean Corpuscular Volume 95.1 fL (78.0-98.0); Mean Platelet Volume 6.9 fL (7.4-10.4); Platelet Count 259 thou/uL (130-400); Red Blood Cell (RBC) Count 3.52 mill/uL (4.20-5.40); White Blood Cell (WBC) Count 6.5 thou/uL (4.8-10.8)
[2018-09-09] MEDS ORDERED: Spiriva 18 MCG CAP (Box of 5 Caps) INH SCH (09:00)
[2018-09-09] MEDS: predniSONE 20 MG TAB PO SCH (09:01)
[2018-09-09] MEDS: Furosemide 20 MG TAB PO SCH (09:01)
[2018-09-09] MEDS: Naproxen 500 MG TAB PO SCH ×2 (09:02→20:16)
[2018-09-09] MEDS: Potassium Chloride 10 MEQ TAB PO SCH (09:02)
[2018-09-09] MEDS: Famotidine 20 MG TAB PO SCH ×2 (09:02→20:16)
[2018-09-09] MEDS: ALPRAZolam 1 MG TAB PO SCH ×3 (09:03→20:16)
[2018-09-09] MEDS: Oseltamivir 75 MG CAP PO SCH ×2 (09:04→20:16)
[2018-09-09] MEDS: Famotidine/PF 20 mg/2ml Vial SLOW IVP SCH ×2 (09:05→20:16)
[2018-09-09] MEDS: Enoxaparin Sodium 40 MG/0.4 ML SYRINGE SC SCH (09:05)
[2018-09-09] MEDS: Vancomycin HCl 1.75 GM in Sodium Chloride 0.9% 500 ML IVPB SCH ×2 (09:16→21:33)
[2018-09-09] MEDS: Valsartan 80 MG TAB PO SCH (09:42)
--- NOTE | 2018-09-09 11:06 | PRG ---
DATE OF SERVICE: 09/09/2018 SUBJECTIVE: Ms. Evans looks and feels much better this morning. She is much less short of breath. We will restart her Spiriva and Dulera in anticipation of discharge in a day or two. Job ID: [id number]
--- NOTE | 2018-09-09 17:16 | PRG ---
DATE OF SERVICE: 09/09/2018 SUBJECTIVE: She has no new complaints. OBJECTIVE: GENERAL: She is in no distress. VITAL SIGNS: She is afebrile, heart rate 105, respiratory rate 17, oximetry is 91% on 3 L, and blood pressure 139/80. LUNGS: Marked for distant wheezes. HEART: Regular rhythm. ABDOMEN: Soft and nontender. IMPRESSION: 1. Chronic obstructive pulmonary disease with exacerbation, clinically slowly improving. 2. Influenza A, her son had influenza prior to developing this illness and we will continue to follow. Job ID: [id number]
[2018-09-09] MEDS: Mometasone/Formoterol 120 PUFF INHALER INH SCH (18:37)
[2018-09-09] MEDS: Montelukast Sodium 10 mg Tablet PO SCH (20:16)
[2018-09-10] MEDS: Piperacillin/Tazobactam 3.375 GM in Sodium Chloride 0.9% 100 ML IVPB SCH ×3 (00:41→11:54)
[2018-09-10] MEDS: Mometasone/Formoterol 120 PUFF INHALER INH SCH ×2 (05:49→19:36)
--- NOTE | 2018-09-10 06:21 | PDOC.FM ---
- Subjective Subjective: 63 yo female seen at bedside this AM. Patient had CODE GREEN last night for tachycardia. Patient states that she was not symptomatic and would like to go home. However, she understands that her lungs are not back to normal as of yet. She still complains of overall generalized weakness. Patient denies chest pain, out of her normal SOB, n/v/d, fevers, chills, or cough. Patient states she has home health services at home 3 days per week and is declining any rehab screening. No other complaints today. - Objective MAR Reviewed: Yes Vital Signs & Weight: Vital Signs (12 hours) Temp Pulse Resp BP Pulse Ox 09/10/18 05:49 95 20 93 L 09/10/18 05:46 95 20 93 L 09/10/18 04:27 97.7 F 79 20 121/73 95 09/10/18 02:57 93 20 95 09/09/18 22:32 98 18 94 L 09/09/18 20:13 94 L 09/09/18 19:54 98.3 F 125 H 16 133/69 94 L 09/09/18 18:35 98.7 F 164 H 24 H 153/94 H 93 L Weight Weight 87.589 kg Most Recent Monitor Data Heart Rate from ECG 92 NIBP 113/63 NIBP BP-Mean 79 Respiration from ECG 14 SpO2 95 I&O: 09/08/18 09/09/18 09/10/18 06:59 06:59 06:59 Intake Total 4991 3790 2200 Output Total 2835 2300 3600 Balance 2156 1490 -1400 Result Diagrams: 09/09/18 06:14 09/08/18 03:55 Phys Exam - Physical Examination Constitutional: NAD HEENT: moist MMs Neck: no nodes Respiratory: wheezing present Expiratory wheezing Cardiovascular: RRR, no significant murmur Gastrointestinal: soft, non-tender, no distention, positive bowel sounds Musculoskeletal: no edema, pulses present Neurological: non-focal, moves all 4 limbs Psychiatric: normal affect, A&O x 3 Skin: no rash, cap refill <2 seconds Dx/Plan (1) Acute respiratory failure with hypoxia Code(s): J96.01 - ACUTE RESPIRATORY FAILURE WITH HYPOXIA Status: Acute (2) Influenza A Code(s): J10.1 - FLU DUE TO OTH IDENT INFLUENZA VIRUS W OTH RESP MANIFEST Status: Acute (3) COPD (chronic obstructive pulmonary disease) Status: Chronic (4) HTN (hypertension) Code(s): I10 - ESSENTIAL (PRIMARY) HYPERTENSION Status: Chronic (5) UTI (urinary tract infection) Status: Acute (6) Blood bacterial culture positive Code(s): R78.81 - BACTEREMIA Status: Acute (7) Tachycardia Code(s): R00.0 - TACHYCARDIA, UNSPECIFIED Status: Acute - Plan Plan: Acute hypoxic respiratory failure likely 2/2 COPD exacerbation vs. Influenza A - Initially admitted to ICU due to intubation and then Extubated 09/07 - Continue broad spectrum. Vanc and zosyn 09/06. - Will transition to oral antibiotics today. - IV steroids BID per Pulmonology discontinued and started oral prednisone - Restarted home inhaler regimen - Duonebs for respiratory support - Patient states home xanax helps her symptoms a lot. - Influenza A positive - Droplet precautions initiated - Blood culture shows Coagulase Negative Staph in 09/17. Likely contaminant. - Patient transitioned to home O2 at 3L currently and maintaining oxygenation CHF - BNP is 221 - Strict I&Os - Monitor for fluid overload - Home medications restarted HTN - Home medications restarted UTI - Continue antibiotic coverage - Urine culture negative Tachycardia - Code Green 09/09 - Self-resolves - Will consider Cardiology consultation. Disposition: Stable, will continue current plan of care.
--- NOTE | 2018-09-10 06:45 | PDOC.EVN ---
Event Note - Event Note Event Note: Transition of Care Note 09/10/18 Admission date 09/06/18 This is a 63 yo female with a PMH of COPD, vaginal cancer who presented intubated to the ED via EMS. EMS was notified by her son who found her down at her house. He states that she was foaming at the mouth and appeared to be struggling to breath. EMS intubated her and brought her in. In the ER, she was placed on the ventilator and received fentanyl and ativan due to her moving about more. Pt was unable to provide any information and family states she is private with her medical details. They did report that she uses 3L of O2 08/04 at home. Patient was extubated on 09/07 due to her improvement of mental status. Patient was transitioned to Venti-mask initially and maintained her oxygen well. However , she was still continuing to be lethargic, but arousable. Patient was eventually titrated down to her home dose of O2 of 3L continuously. Patient has continued to complain of overall weakness, but improvement. Patient was then found to be influenza positive due to delay in outside facility relaying information to [facility]. Isolation precautions and Tamiflu initiated at that time. Patient was deemed stable for transfer out of ICU and was transferred to medical floor. Blood cultures resulted and showed 1/2 Coagulase Negative Staph which is a likely contaminant and treatment for that will not be completed. On 09/09 patient had CODE GREEN called for asymptomatic tachycardia. Patient was unaware of symptoms. Patient was transferred to Telemetry and her tachycardia resolved on its own. Primary team is working with diagnosis of likely multifocal atrial tachycardia. On 09/10 patient will be transitioned to oral antibiotics to continue full course due to her severe COPD disease and recent influenza infection. Patient continued to improve, but has been shown to have de-conditioned over last several days. Patient has had PT and OT. I believe she would be great candidate for rehab placement to regain her strength; however, she is adamant that she has plenty of help at home and does not want to go to rehab. Please contact with any questions or concerns.
[2018-09-10] MEDS ORDERED: Spiriva 18 MCG CAP (Box of 5 Caps) INH SCH (07:00)
[2018-09-10] MEDS: predniSONE 20 MG TAB PO SCH (08:10)
[2018-09-10] MEDS: Potassium Chloride 10 MEQ TAB PO SCH (08:10)
[2018-09-10] MEDS: ALPRAZolam 1 MG TAB PO SCH ×3 (08:10→20:19)
[2018-09-10] MEDS: Famotidine 20 MG TAB PO SCH ×2 (08:11→20:19)
[2018-09-10] MEDS: Oseltamivir 75 MG CAP PO SCH ×2 (08:11→20:19)
[2018-09-10] MEDS: Enoxaparin Sodium 40 MG/0.4 ML SYRINGE SC SCH (08:11)
[2018-09-10] MEDS: Valsartan 80 MG TAB PO SCH (08:11)
[2018-09-10] MEDS: Naproxen 500 MG TAB PO SCH ×2 (08:11→20:19)
[2018-09-10] MEDS: Furosemide 20 MG TAB PO SCH (08:11)
[2018-09-10] MEDS: Famotidine/PF 20 mg/2ml Vial SLOW IVP SCH ×2 (08:12→20:19)
--- NOTE | 2018-09-10 09:23 | PQF ---
CLINICAL DOCUMENTATION IMPROVEMENT CLARIFICATION FORM: ICD-10 Updated PLEASE DO AN ADDENDUM TO THE PROGRESS NOTE WITH ANY DOCUMENTATION UPDATES OR ADDITIONS AND CARRY THROUGH TO DC SUMMARY. THANK YOU. DATE: 09/11/18 ATTN: DR. WATTS Please exercise your independent, professional judgment in responding to the clarification form. Clinical indicators are provided on the bottom of this form for your review Please check appropriate box(s): HEART FAILURE: A. TYPE: [ ] Systolic / HFrEF [x ] Diastolic / HFpEF [ ] Combined Systolic / Diastolic B. ACUITY [ ] Acute [ ] Acute on Chronic [ x ] Chronic [ ] Other diagnosis [ ] Unable to determine In addition, please specify: Present on Admission (POA): [ x ] Yes [ ] No [ ] Unable to determine For continuity of documentation, please document condition throughout progress notes and discharge summary. Thank You. CLINICAL INDICATORS - SIGNS / SYMPTOMS / LABS PROGRESS NOTE 09/07: "CHF" BNP 221.7 RISKS: HYPERTENSION ACUTE RESPIRATORY FAILURE TREATMENT: INTUBATION MECHANICAL VENTILATION CRITICAL CARE MONITORING SERIAL LABS (This form is maintained as a part of the permanent medical record) 2014 [employer]. All Rights Reserved JASON [email or web address] Office: [phone] [facility]
[2018-09-10] MEDS: Vancomycin HCl 1.75 GM in Sodium Chloride 0.9% 500 ML IVPB SCH (09:47)
--- NOTE | 2018-09-10 11:56 | PRG ---
DATE OF SERVICE: 09/10/2018 This is an addendum to the note of Dr. Vijay Mauro. Ms. Evans continues to feel improved as far as her COPD and wheezing are concerned. She did have an elevated pulse rate yesterday, which was asymptomatic. This morning, her pulse is irregular and upon examining the monitor, it appears to me to be multifocal atrial tachycardia. The treatment for which is treating her COPD. In the event, she is asymptomatic and in fact feels better. Likely ready for discharge in a day or 2. Job ID: [id number]
--- NOTE | 2018-09-10 19:11 | PRG ---
DATE OF SERVICE: 09/10/2018 SERVICE: Pulmonary Medicine. INTERVAL HISTORY: The patient actually indicates that she is breathing much better today. Her lungs are starting to open up a little bit. She denies any fevers, chills, nausea, or vomiting. Otherwise, there has been no interval change to her condition. PHYSICAL EXAMINATION: VITAL SIGNS: Afebrile, pulse 89, blood pressure 144/81, respirations 18, and saturation 94% on 3 L nasal cannula. GENERAL: The patient is awake and alert, in no apparent distress. LUNGS: Excellent air entry. There is a prolonged expiratory phase with polyphonic wheezing. No crackles or rhonchi appreciated. HEART: Normal rate and regular. ABDOMEN: Soft, nontender, and nondistended. Bowel sounds are positive. MUSCULOSKELETAL: No cyanosis or clubbing. No pitting in the bilateral lower extremities. NEUROLOGIC: Grossly nonfocal. ASSESSMENT: 1. Acute on chronic hypoxic and hypercapnic respiratory failure, resolved to baseline. 2. Chronic obstructive pulmonary disease with acute exacerbation. 3. Influenza A. DISCUSSION AND PLAN: She will continue her antibiotics, nebulized medications, and steroids to completion. On discharge from the hospital, she can be transitioned back home on all of her respiratory medications that she typically uses. She needs to use her ventilator at night whenever she is sleeping and during the daytime if napping. If she continues to trend in the correct direction, she will be stable for transition home in the morning. Job ID: [id number]
[2018-09-10] MEDS: Montelukast Sodium 10 mg Tablet PO SCH (20:19)
[2018-09-10] MEDS: Doxycycline 100 MG CAP PO SCH (20:19)
--- NOTE | 2018-09-11 07:01 | PDOC.FM ---
Addendum entered and electronically signed by Janessa Monk MD 09/11/18 12:40 : Will obtain echo today and f/u results due to patient's elevated BNP. No record of recent echo Original Note: - Subjective Subjective: Patient is doing well this morning and reports she is ready to go home. Patient did have diarrhea throughout the night but states that it started to slow down this morning. Patient denies abdominal or chest pain. Patient states her breathing is significantly improved. Patient remains adamant that she does not want inpatient rehab but is open to home health. - Objective Vital Signs & Weight: Vital Signs (12 hours) Temp Pulse Resp BP Pulse Ox 09/11/18 04:00 98.6 F 102 H 20 145/60 H 94 L 09/11/18 01:00 95 20 97 09/10/18 20:18 92 L 09/10/18 19:54 98.2 F 110 H 18 134/75 92 L 09/10/18 19:36 128 H 22 H 93 L Weight Weight 87.77 kg Most Recent Monitor Data Heart Rate from ECG 92 NIBP 113/63 NIBP BP-Mean 79 Respiration from ECG 14 SpO2 95 I&O: 09/09/18 09/10/18 09/11/18 06:59 06:59 06:59 Intake Total 3790 2200 1740 Output Total 2300 3600 1300 Balance 1490 -1400 440 Result Diagrams: 09/09/18 06:14 09/08/18 03:55 Phys Exam - Physical Examination Constitutional: NAD HEENT: PERRLA, moist MMs, sclera anicteric Neck: no JVD, supple, full ROM mild wheeze heard diffusely in anterior chest, no incr resp effort Cardiovascular: RRR, no significant murmur, no rub Gastrointestinal: soft, non-tender, no distention, positive bowel sounds Musculoskeletal: no edema, pulses present Neurological: non-focal Psychiatric: normal affect, A&O x 3 Skin: no rash Dx/Plan (1) Acute respiratory failure with hypoxia Code(s): J96.01 - ACUTE RESPIRATORY FAILURE WITH HYPOXIA Status: Acute (2) Blood bacterial culture positive Code(s): R78.81 - BACTEREMIA Status: Acute (3) Influenza A Code(s): J10.1 - FLU DUE TO OTH IDENT INFLUENZA VIRUS W OTH RESP MANIFEST Status: Acute (4) Tachycardia Code(s): R00.0 - TACHYCARDIA, UNSPECIFIED Status: Acute (5) UTI (urinary tract infection) Status: Acute (6) Vaginal cancer Status: Acute (7) COPD (chronic obstructive pulmonary disease) Status: Chronic (8) HTN (hypertension) Code(s): I10 - ESSENTIAL (PRIMARY) HYPERTENSION Status: Chronic - Plan Plan: Acute hypoxic respiratory failure likely 2/2 COPD exacerbation vs. Influenza A - Initially admitted to ICU due to intubation and then Extubated 09/07 - Will transition to oral antibiotics today - continue started oral prednisone - Restarted home inhaler regimen - Duonebs for respiratory support - Patient states home xanax helps her symptoms a lot - Influenza A positive - Droplet precautions initiated - Blood culture shows Coagulase Negative Staph in 09/17. Likely contaminant. - Patient transitioned to home O2 at 3L currently and maintaining oxygenation CHF - BNP is 221 - Strict I&Os - Monitor for fluid overload - Home medications restarted HTN - Home medications restarted UTI - Continue antibiotic coverage w/ doxycycline - Urine culture negative Tachycardia - Code Green 09/09 - Self-resolves - Will consider Cardiology consultation if recurrence Disposition: Stable, will continue current plan of care and possible discharge today. Will try to set up HH as patient declined inpt rehab. Addendum - Attending - Attending Attestation Date/Time: 09/11/18 1111 I personally evaluated the patient and discussed the management with Dr. Monk I agree with the History, Examination, Assessment and Plan documented above with any addition or exceptions noted below- Patient without complaints. Still has cough but SOB improved. Afebrile VSS A/P: 1) Acute on chronic resp failure- resolved. 2) Influenza A- completing tamiflu course. 3) COPD - Continue nebs, steroids, O2.
[2018-09-11] MEDS: Mometasone/Formoterol 120 PUFF INHALER INH SCH ×2 (08:00→18:40)
[2018-09-11] MEDS: Oseltamivir 75 MG CAP PO SCH ×2 (09:19→21:48)
[2018-09-11] MEDS: Furosemide 20 MG TAB PO SCH (09:19)
[2018-09-11] MEDS: Famotidine 20 MG TAB PO SCH ×2 (09:19→21:49)
[2018-09-11] MEDS: Naproxen 500 MG TAB PO SCH ×2 (09:19→21:49)
[2018-09-11] MEDS: ALPRAZolam 1 MG TAB PO SCH ×3 (09:20→21:49)
[2018-09-11] MEDS: Doxycycline 100 MG CAP PO SCH ×2 (09:20→21:48)
[2018-09-11] MEDS: predniSONE 20 MG TAB PO SCH (09:20)
[2018-09-11] MEDS: Potassium Chloride 10 MEQ TAB PO SCH (09:20)
[2018-09-11] MEDS: Enoxaparin Sodium 40 MG/0.4 ML SYRINGE SC SCH (09:21)
[2018-09-11] MEDS: Famotidine/PF 20 mg/2ml Vial SLOW IVP SCH ×2 (09:21→21:49)
[2018-09-11] MEDS: Valsartan 80 MG TAB PO SCH (09:21)
--- NOTE | 2018-09-11 11:45 | PRG ---
DATE OF SERVICE: 09/11/2018 SUBJECTIVE: This morning, she is awake, alert, and responsive. She is ready to go home. OBJECTIVE: VITAL SIGNS: Her saturations are 96% on room air, respiratory rate 20, temperature 99, and blood pressure 122/78. CHEST: Decreased breath sounds. No wheezing. CARDIAC: Normal S1 and S2. No gallops. ABDOMEN: No masses. LABORATORY DATA: Cultures are all negative. She had influenza A, that is, positive. IMPRESSION: 1. Respiratory failure. 2. Chronic obstructive pulmonary disease. 3. Influenza a. PLAN: Pulmonary reyes, she can be discharged home on present medication. Follow up with the primary physician at [facility]. Job ID: [id number]
[2018-09-11] MEDS ORDERED: Floranex Packet PO SCH (18:00)
[2018-09-11] MEDS: Loperamide HCl 2 MG CAP PO PRN (18:20)
[2018-09-11] MEDS: Montelukast Sodium 10 mg Tablet PO SCH (21:49)
--- NOTE | 2018-09-12 06:46 | PDOC.FM ---
- Subjective Subjective: No events overnight. Patient states she feels well this morning and is ready for discharge. No other episodes of diarrhea. Patient states she is breathing well and back to her baseline. No complaints or concerns. - Objective Vital Signs & Weight: Vital Signs (12 hours) Temp Pulse Resp BP Pulse Ox 09/12/18 04:51 98.7 F 98 14 133/61 98 09/12/18 00:25 100 20 96 09/11/18 20:00 94 L 09/11/18 19:58 98.4 F 93 18 132/81 94 L Weight Weight 85.23 kg Most Recent Monitor Data Heart Rate from ECG 92 NIBP 113/63 NIBP BP-Mean 79 Respiration from ECG 14 SpO2 95 I&O: 09/10/18 09/11/18 09/12/18 06:59 06:59 06:59 Intake Total 2200 1740 Output Total 3600 1300 Balance -1400 440 Result Diagrams: 09/09/18 06:14 09/08/18 03:55 Phys Exam - Physical Examination Constitutional: NAD HEENT: PERRLA, moist MMs, sclera anicteric Neck: no JVD, supple, full ROM Respiratory: clear to auscultation bilateral Cardiovascular: RRR, no significant murmur, no rub Gastrointestinal: soft, non-tender, no distention, positive bowel sounds Musculoskeletal: no edema Neurological: non-focal Psychiatric: normal affect, A&O x 3 Dx/Plan (1) Acute respiratory failure with hypoxia Code(s): J96.01 - ACUTE RESPIRATORY FAILURE WITH HYPOXIA Status: Acute (2) Blood bacterial culture positive Code(s): R78.81 - BACTEREMIA Status: Acute (3) Influenza A Code(s): J10.1 - FLU DUE TO OTH IDENT INFLUENZA VIRUS W OTH RESP MANIFEST Status: Acute (4) Tachycardia Code(s): R00.0 - TACHYCARDIA, UNSPECIFIED Status: Acute (5) UTI (urinary tract infection) Status: Acute (6) Vaginal cancer Status: Acute (7) COPD (chronic obstructive pulmonary disease) Status: Chronic (8) HTN (hypertension) Code(s): I10 - ESSENTIAL (PRIMARY) HYPERTENSION Status: Chronic - Plan Plan: Acute hypoxic respiratory failure likely 2/2 COPD exacerbation vs. Influenza A - Initially admitted to ICU due to intubation and then Extubated 09/07 - Continue oral abx and prednisone - Restarted home inhaler regimen - Duonebs for respiratory support - Patient states home xanax helps her symptoms a lot - Influenza A positive - treated w/ tamiflu - Droplet precautions initiated - Blood culture shows Coagulase Negative Staph in 12. Likely contaminant. - Patient transitioned to home O2 at 3L currently and maintaining oxygenation CHF, diastolic dysfunction - present on admission - BNP is 221 - Echo obtained on 09/11: EF 60-65%, grade 1/3 diastolic dysfunction, mild MR/TR - Strict I&Os - Monitor for fluid overload - Home medications restarted HTN - Home medications restarted UTI - Continue antibiotic coverage w/ doxycycline - Urine culture negative Tachycardia - Code Green 09/09 - Self-resolved - Will consider Cardiology consultation if recurrence Disposition: Stable, will continue current plan of care and discharge today. Will try to set up HH as patient declined inpt rehab. Code: Full Addendum - Attending - Attending Attestation Date/Time: 09/12/18 1100 I personally evaluated the patient and discussed the management with Dr. Monk I agree with the History, Examination, Assessment and Plan documented above with any addition or exceptions noted below- Patient without complaints. Diarrhea improved. SOB at baseline. Afebrile VSS. A/P: 1) Acute on chronic resp failure- resolved. 2) Influenza A - finished course of tamiflu. 3) COPD- continue steroids, nebs. 4) Diarrhea - improved; stool studies negative; continue prn imodium 5) Elevated BNP- echo with grade 1 diastolic dysfunction; normal EF 6) Deconditioning- d/c home today with home health for PT.
[2018-09-12] MEDS: Mometasone/Formoterol 120 PUFF INHALER INH SCH (07:28)
[2018-09-12] MEDS ORDERED: predniSONE 20 MG TAB PO SCH (08:00)
[2018-09-12] MEDS ORDERED: Floranex Packet PO SCH (09:00)
[2018-09-12] MEDS: Naproxen 500 MG TAB PO SCH (09:52)
[2018-09-12] MEDS: ALPRAZolam 1 MG TAB PO SCH (09:52)
[2018-09-12] MEDS: Doxycycline 100 MG CAP PO SCH (09:52)
[2018-09-12] MEDS: Loperamide HCl 2 MG CAP PO PRN (09:53)
[2018-09-12] MEDS: Enoxaparin Sodium 40 MG/0.4 ML SYRINGE SC SCH (09:53)
[2018-09-12] MEDS: Valsartan 80 MG TAB PO SCH (09:53)
[2018-09-12] MEDS: Furosemide 20 MG TAB PO SCH (09:53)
[2018-09-12] MEDS: Famotidine 20 MG TAB PO SCH (09:53)
[2018-09-12] MEDS: Oseltamivir 75 MG CAP PO SCH (09:53)
[2018-09-12] MEDS: Famotidine/PF 20 mg/2ml Vial SLOW IVP SCH (10:20)
[2018-09-12] MEDS: Potassium Chloride 10 MEQ TAB PO SCH (10:37)
[2018-09-12 12:17] VITALS: TEMP 97.8
[2018-09-12 14:33] VITALS: BP 150/69
--- NOTE | 2018-09-12 15:35 | EKG ---
Test Reason : Blood Pressure : / mmHG Vent. Rate : 104 BPM Atrial Rate : 104 BPM P-R Int : 132 ms QRS Dur : 074 ms QT Int : 352 ms P-R-T Axes : 067 084 069 degrees QTc Int : 462 ms Sinus tachycardia Otherwise normal ECG Confirmed by TWAN SOLANO ([id number]), editor managing newspaper HEIDI JOSEPH ([id number]) on 09/12/2018 3:34:48 PM Referred By: Confirmed By:TWAN SOLANO
--- NOTE | 2018-09-14 01:30 | DIS ---
DATE OF ADMISSION: 09/06/2018 DATE OF DISCHARGE: 09/12/2018 RESIDENT: Janessa Monk MD ADMITTING ATTENDING: Mare Ricci MD DISCHARGE ATTENDING: Mare Ricci MD CONSULTS: 1. Case Management. 2. PT/OT. 3. Pulmonology. PROCEDURES: None. PRIMARY DIAGNOSIS: Acute hypoxic respiratory failure secondary to influenza type A/chronic obstructive pulmonary disease exacerbation. SECONDARY DIAGNOSES: 1. Congestive heart failure, diastolic dysfunction, present on admission. 2. Hypertension. 3. Urinary tract infection. 4. Tachycardia, resolved. DISCHARGE MEDICATIONS: 1. Doxycycline 100 mg oral twice daily. 2. Dulera 2 puffs inhalation twice daily. 3. Prednisone 20 mg oral every morning with breakfast. 4. Prednisone 10 mg oral every morning with breakfast. 5. Valsartan 80 mg oral daily. 6. Potassium 10 mEq oral daily. 7. Naproxen 500 mg oral twice daily. 8. Montelukast 10 mg oral daily. 9. Lasix 20 mg oral daily. 10. Spiriva 2 inhalation nasal daily. 11. Alprazolam 2 mg oral 3 times a day. 12. Ventolin 2 puffs inhalation every 4 hours as needed. Discontinued medications: None. HISTORY OF PRESENT ILLNESS/HOSPITAL COURSE: This is a 63-year-old female with past medical history of COPD, vaginal cancer, who presented intubated to the emergency department via EMS on 09/06/2018. EMS was called by the son, who found her down at her house. The son stated that the patient was having difficulty breathing. The patient was intubated by EMS at the scene and brought to the emergency department. In the ER, the patient was placed on the ventilator and received fentanyl and Ativan. The patient was unable to provide any additional information at that time and the family stated that she was private with her medical details. The patient does use 3 L of O2 at home 24x7. The patient was extubated on 09/07 due to improvement of mental status. She was transitioned to Ventimask initially and maintained her oxygen well and initially transitioned to nasal cannula. The patient initially also complained of overall weakness, which improved throughout her hospital stay. The patient was found to be influenza positive due to delay in the outside facility sending information to [facility]. Isolation precautions and Tamiflu were initiated at that time. The patient received 10 doses of Tamiflu throughout her hospital stay. The patient was initially admitted to the ICU and was stable to be transferred to the medical floor. Blood culture resulted and showed 1/2 coagulase-negative Staph, which is likely contaminant and was therefore not treated. On 09/09, the patient had a code green called for asymptomatic tachycardia. The patient was unaware of any symptoms. The patient was transferred to telemetry and her tachycardia resolved on its own. The patient likely has multifocal atrial tachycardia. On 09/10/2018, the patient was transitioned to oral antibiotics to continue full course due to severe COPD disease and recent flu infection. The patient's BNP was elevated at 221. An echocardiogram was performed on 2017 that showed an ejection fraction of 60% to 65%, grade 1/3 diastolic dysfunction, mild mitral and tricuspid regurgitation. The patient has had PT and OT daily throughout her hospital stay. Case Management was on the case to help with discharge planning. It was recommended for the patient to go to inpatient rehab to regain her strength; however, the patient adamantly refused inpatient rehab stating that she had plenty of help at home and did not want to go to rehab. Case Management assisted with setting the patient up with Home Health. The patient did have several episodes of diarrhea towards the end of her stay. The patient was C difficile negative. The patient was given Imodium to help with symptoms. The patient will be sent home with a prednisone taper. The patient to follow up closely with Pulmonology. DISPOSITION: Stable. DISCHARGE INSTRUCTIONS: 1. Location: Home with Home Health. 2. Activity: Ad sofia. 3. Diet: Heart healthy. 4. Followup: Follow up with PCP within [address] Angelo within 3 to 4 weeks. Job ID: [id number] [facility]
== END 2018-09-12 14:10 | disposition home health service (06) | DRG 208 ==
LOC: ERS 17:02 → CCU 19:20 → EDBD 19:20 → CCU 09-07 09:26 → T4-A 09-08 17:28 → 2NO 09-09 18:47
PROVIDERS: ADMIT Family Medicine; ATTEND Family Medicine
PROC: 5A1935Z Respiratory Ventilation, Less than 24 Consecutive Hours (ICD-10-PCS; principal; 2018-09-02)
PROC: B24BZZZ Ultrasonography of Heart with Aorta (ICD-10-PCS; 2018-09-11)
DX: J96.22 Acute and chronic respiratory failure with hypercapnia (principal); J44.1 Chronic obstructive pulmonary disease with (acute) exacerbation; I50.32 Chronic diastolic (congestive) heart failure; N39.0 Urinary tract infection, site not specified; J96.21 Acute and chronic respiratory failure with hypoxia; Z99.81 Dependence on supplemental oxygen; J09.X9 Influenza due to identified novel influenza A virus with other manifestations; R00.0 Tachycardia, unspecified; I11.0 Hypertensive heart disease with heart failure; Z79.51 Long term (current) use of inhaled steroids; R19.7 Diarrhea, unspecified; Z79.1 Long term (current) use of non-steroidal anti-inflammatories (NSAID); Z79.01 Long term (current) use of anticoagulants; Z79.52 Long term (current) use of systemic steroids; Z79.2 Long term (current) use of antibiotics; G89.29 Other chronic pain; F41.9 Anxiety disorder, unspecified; C52 Malignant neoplasm of vagina
CPT/HCPCS: 36415; 36556; 51702; 70450; 71045; 71275; 74177; 80053; 80202; 80306; 81003; 81015; 82550; 82553; 82805; 83605; 83880; 84484; 85025; 85610; 85730; 86704; 86705; 86706; 86709; 86803; 87040; 87086; 87149; 87324; 87340; 87449; 87631; 87804; 93005; 93010; 93306; 94003; 94640; 94660; 96365; 96367; 96368; 96375; G8981-GP-CK; G8982-GP-CI; G8988-GO-CJ; G8989-GO-CI; J1200; J1650; J2060; J2543; J2704; J2920; J3010; J3370; J7050; J7506; J7620; S0028

== ENCOUNTER 2018-09-23 13:33 | Emergency (ER) | payer MEDICARE, MEDICAID ==
[2018-09-23] MEDS ORDERED: Fentanyl 100 MCG/2 ML VIAL ONE (14:01)
[2018-09-23] MEDS ORDERED: Lidocaine 1% w/Epinephrine 1:100K 20 ML VIAL ONE (14:06)
[2018-09-23] MEDS ORDERED: Lidocaine 1% (PF) 30 ML VIAL ONE (14:06)
--- NOTE | 2018-09-23 17:11 | RAD ---
TWO VIEWS LEFT TIBIA AND FIBULA: 09/23/18 HISTORY: Mechanical fall down stairs. Distal left lower extremity pain. Skin disruption/avulsion left calf. FINDINGS: There is no fracture or dislocation seen involving the left tibia or fibula. There is minimal subcuta neous emphysema and slight increased density seen at the lateral aspect of the mid calf as well as lo cated anteriorly which may be related to patient's wound/laceration in this region. No radiopaque for eign body seen. IMPRESSION: 1. No acute osseous abnormality in the left tibia or fibula. 2. Minimal subcutaneous emphysema at the level of the mid tibia and fibula likely related to lac eration and subcutaneous soft tissue swelling. POS: [facility]
== END 2018-09-23 16:44 | disposition home or self-care (01) ==
LOC: ERS 13:33
DX: S81.812A Laceration without foreign body, left lower leg, initial encounter (principal); S50.312A Abrasion of left elbow, initial encounter; I50.9 Heart failure, unspecified; F41.9 Anxiety disorder, unspecified; Z79.899 Other long term (current) drug therapy; W01.0XXA Fall on same level from slipping, tripping and stumbling without subsequent striking against object, initial encounter
CPT/HCPCS: 12004; 96372; J2001; J3010